=== PATIENT | male | born 1995 | race Caucasian/White ===

== ENCOUNTER 2021-10-28 14:55 | Inpatient (IN) ==
[2021-10-28] MEDS ORDERED: *HR* LORazepam 1 MG TABLET PO PRN (17:37)
[2021-10-28] MEDS ORDERED: Haloperidol Lactate 5 MG/ML VIAL IM PRN (17:37)
[2021-10-28] MEDS ORDERED: *HR* LORazepam 2 MG/ML VIAL IM PRN (17:37)
[2021-10-28] MEDS ORDERED: QUEtiapine Fumarate 25 MG TABLET PO PRN (17:37)
[2021-10-28] MEDS ORDERED: haloperidoL 5 MG TABLET PO PRN (17:37)
[2021-10-28 18:22] LABS: Influenza A PCR Negative (Negative); Influenza B PCR Negative (Negative); Resp. Syncytial Virus PCR Negative (Negative)
[2021-10-28 18:28] LABS: SARS-CoV-2 by PCR (In House) Negative (Negative)
[2021-10-28] MEDS: Acetaminophen 325 MG TABLET PO PRN (20:43)
[2021-10-28] MEDS: Nicotine 2 MG GUM BC PRN (20:43)
[2021-10-28] MEDS: hydrOXYzine pamoate 25 MG CAPSULE PO PRN (20:43)
[2021-10-29] MEDS ORDERED: MOM Conc 10 ML UD.LIQ PO PRN (10:45)
[2021-10-29] MEDS ORDERED: Mag Hydrox/Al Hydrox/Simeth 30 ML UDC PO PRN (10:45)
[2021-10-29] MEDS: Vitamin B Complex/Vit C/Vit E 1 EACH TABLET PO SCH (14:46)
[2021-10-29] MEDS: Nicotine 2 MG GUM BC PRN ×2 (14:47→17:44)
[2021-10-29] MEDS: Acetaminophen 325 MG TABLET PO PRN ×2 (15:16→20:49)
[2021-10-29] MEDS: hydrOXYzine pamoate 25 MG CAPSULE PO PRN (17:09)
[2021-10-29] MEDS: traZODone 50 MG TABLET PO PRN (20:48)
[2021-10-29] MEDS: ARIPiprazole 5 MG TABLET PO SCH (20:48)
[2021-10-30] MEDS: Vitamin B Complex/Vit C/Vit E 1 EACH TABLET PO SCH (10:26)
[2021-10-30] MEDS: Nicotine 2 MG GUM BC PRN ×3 (10:30→20:40)
[2021-10-30] MEDS: hydrOXYzine pamoate 25 MG CAPSULE PO PRN ×2 (12:59→20:34)
[2021-10-30] MEDS: ARIPiprazole 5 MG TABLET PO SCH (20:34)
[2021-10-30] MEDS: traZODone 50 MG TABLET PO PRN (20:35)
[2021-10-30] MEDS: Acetaminophen 325 MG TABLET PO PRN (20:37)
[2021-10-31] MEDS: Vitamin B Complex/Vit C/Vit E 1 EACH TABLET PO SCH (08:38)
[2021-10-31] MEDS ORDERED: ARIPiprazole 5 MG TABLET PO SCH (09:30)
[2021-10-31 09:33] VITALS: BP 121/76; PULSE 92; TEMP 97.3; O2SAT 98
== END 2021-10-31 11:00 | disposition other institution (70) | DRG 751 ==
LOC: EMEROOARM 14:55 → 1ANU 18:49
PROVIDERS: ADMIT Psychiatry & Neurology Psychiatry; ATTEND Psychiatry & Neurology Psychiatry